=== PATIENT | male | born 1990 | race Caucasian/White ===

== ENCOUNTER 2024-08-17 17:13 | Emergency (ER) | payer OTHER ==
[2024-08-17 17:24] VITALS: BP 117/70; PULSE 73; RESP 20; TEMP 98; BMI 27.1
[2024-08-17] MEDS ORDERED: ACETAMINOPHEN INJECTION 100 ML ONE (18:47)
[2024-08-17] MEDS: SODIUM CHLORIDE 0.9% 500 ML INFUS.BAG IV ONE (18:51)
[2024-08-17] MEDS: ACETAMINOPHEN 1000 MG/100 ML BAG IVPB ONE (18:51)
[2024-08-17 19:03] LABS: ABSOLUTE IMMATURE GRANULOCYTES 0.03 x10^3/uL (0.0-0.031); BASOPHILS # 0.04 x10^3/uL (0.01-0.08); EOSINOPHIL % 1.6 % (0.8-7.0); EOSINOPHILS # 0.14 x10^3/uL (0.04-0.54); MCHC 32.4 g/dl (32.3-36.5); MEAN CELL VOLUME 93.7 fl (79.0-92.2); MEAN PLT VOLUME 10.3 fl (9.4-12.4); MONOCYTE # 0.65 x10^3/uL (0.30-0.82); MONOCYTE % 7.4 % (5.3-12.2); RDW 12.5 % (12.0-15.6)
[2024-08-17 19:05] LABS: URINE APPEARANCE CLEAR; URINE BILIRUBIN NEGATIVE (NEGATIVE); URINE COLOR YELLOW; URINE GLUCOSE (UA) NEGATIVE (NEGATIVE); URINE KETONE TRACE (NEGATIVE); URINE LEUK ESTERASE NEGATIVE (NEGATIVE); URINE NITRITE NEGATIVE (NEGATIVE); URINE PROTEIN NEGATIVE (NEGATIVE); URINE UROBILINOGEN 1.0 mg/dL (0.2-1.0)
[2024-08-17 19:30] LABS: CO2 30.0 mmol/L (21-32)
[2024-08-17 19:31] LABS: GLUCOSE,RANDOM 82.0 mg/dL (74-106)
[2024-08-17 19:33] LABS: CREATININE 1.1 mg/dL (0.55-1.3); SGOT/AST 20.0 U/L (15-37); SGPT/ALT 32.0 U/L (13-61)
[2024-08-17 19:34] LABS: TOT PROT 6.9 g/dl (6.4-8.2)
[2024-08-17 19:36] LABS: ALK PHOS 91.0 U/L (45-117)
[2024-08-17 20:21] LABS: HCV DIAGNOSTIC IN-HOUSE W/RFLX NON-REACTIVE (NONREACTIVE)
[2024-08-17 20:22] LABS: HIV INTERPRETATION NEGATIVE (NEGATIVE)
== END 2024-08-17 21:35 | disposition home or self-care (01) ==
LOC: JER 17:13
PROC: 3E033NZ Introduction of Analgesics, Hypnotics, Sedatives into Peripheral Vein, Percutaneous Approach (ICD-10-PCS; principal; 2024-08-17)
DX: K59.00 Constipation, unspecified (principal); R10.31 Right lower quadrant pain; R10.32 Left lower quadrant pain; R10.33 Periumbilical pain; R14.3 Flatulence
CPT/HCPCS: 36415; 74177-TC; 80053; 81003; 83690; 85025; 86803; 87086; 87389; 99285-25; Q9967